=== PATIENT | female | born 1960 | race Caucasian/White ===

== ENCOUNTER 2020-04-19 01:31 | Emergency (ER) | payer OTHER ==
[2020-04-19] MEDS ORDERED: Sodium Chloride 0.9% 10 ML Syringe FLUSH PRN (01:49)
[2020-04-19] MEDS ORDERED: Ondansetron 4 MG/2 ML SDV IVPUSH ONE (01:49)
[2020-04-19] MEDS ORDERED: HYDROmorphone 1 MG/ML Syringe IVPUSH ONE (01:50)
[2020-04-19] MEDS ORDERED: Ketorolac 30 MG/ML SDV IVPUSH ONE (01:50)
--- NOTE | 2020-04-19 01:55 | EDM.PDOC ---
ED HPI GENERAL MEDICAL PROBLEM - General Chief Complaint: Flank Pain Stated Complaint: LEFT SIDE AND BACK PAIN Time Seen by Provider: 04/19/20 01:42 Source of Information: Reports: Patient History Limitations: Reports: No Limitations - History of Present Illness INITIAL COMMENTS - FREE TEXT/NARRATIVE: The patient presents with left flank and left sided abdominal pain This started a few hours ago. She has nausea and vomiting with it. She has a history of kidney stones about 20 years ago. She has no fever but she does have chills. She has no dysuria or hematuria. She has no chest pain, cough, or shortness of breath. Onset: Sudden Duration: Hour(s): Location: Reports: Abdomen, Back Quality: Reports: Sharp Severity: Severe Improves with: Reports: None Worsens with: Reports: None Associated Symptoms: Reports: Fever/Chills, Nausea/Vomiting. 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 Denies: Fever HEENT: Reports: No Symptoms Respiratory: Reports: No Symptoms Cardiovascular: Reports: No Symptoms Endocrine: Reports: No Symptoms GI/Abdominal: Reports: Abdominal Pain, Nausea, Vomiting : Reports: Flank Pain Musculoskeletal: Reports: Back Pain Skin: Reports: No Symptoms ED EXAM, GI/ABD - Physical Exam Exam: See Below Exam Limited By: No Limitations General Appearance: Alert, No Apparent Distress Ears: Normal External Exam Nose: Normal Inspection Head: Atraumatic, Normocephalic Neck: Normal Inspection Respiratory/Chest: No Respiratory Distress, Lungs Clear, Normal Breath Sounds Cardiovascular: Regular Rate, Rhythm, No Edema, No Murmur GI/Abdominal Exam: Soft, No Organomegaly, No Mass, Tender (Mild left lower abdomen) Course - Vital Signs Last Recorded V/S: Last Vital Signs Temp 97.7 F 04/19/20 01:40 Pulse 81 04/19/20 01:40 Resp 16 04/19/20 01:40 BP 183/88 H 04/19/20 01:40 Pulse Ox 98 04/19/20 01:40 - Orders/Labs/Meds Orders: Active Orders 24 hr Category Date Time Status Peripheral IV Care [RC] . DIRECTED Care 04/19/20 01:50 Active Abdomen Pelvis wo Cont [CT] Stat Exams 04/19/20 01:49 Taken Sodium Chloride 0.9% [Normal Saline] 1,000 ml Med 04/19/20 02:00 Active IV ASDIRECTED Sodium Chloride 0.9% [Saline Flush] Med 04/19/20 01:49 Active 10 ml FLUSH ASDIRECTED PRN ED Antiemetic Medication Reflex [OM.PC] Stat Oth 04/19/20 01:49 Ordered Peripheral IV Insertion Adult [OM.PC] Stat Oth 04/19/20 01:49 Ordered Medication Orders Sodium Chloride (Normal Saline) 1,000 mls @ 125 mls/hr IV ASDIRECTED JOSEPHINE Last Admin: 04/19/20 02:01 Dose: 125 mls/hr Documented by: ARY Sodium Chloride (Saline Flush) 10 ml FLUSH ASDIRECTED PRN PRN Reason: Keep Vein Open Last Admin: 04/19/20 02:05 Dose: 10 ml Documented by: ARY Labs: Laboratory Tests 04/19/20 04/19/20 04/19/20 Range/Units 01:56 01:59 01:59 WBC 8.73 (3.98-10.04) K/mm3 RBC 4.81 (3.98-5.22) M/mm3 Hgb 14.4 (11.2-15.7) gm/dl Hct 42.7 (34.1-44.9) % MCV 88.8 (79.4-94.8) fl MCH 29.9 (25.6-32.2) pg MCHC 33.7 (32.2-35.5) g/dl RDW Std Deviation 44.0 (36.4-46.3) fL Plt Count 248 (182-369) K/mm3 MPV 9.0 L (9.4-12.3) fl Neut % (Auto) 64.4 (34.0-71.1) % Lymph % (Auto) 24.3 (19.3-51.7) % [place] % (Auto) 9.2 (4.7-12.5) % Eos % (Auto) 1.7 (0.7-5.8) Baso % (Auto) 0.2 (0.1-1.2) % Neut # (Auto) 5.62 (1.56-6.13) K/mm3 Lymph # (Auto) 2.12 (1.18-3.74) K/mm3 [place] # (Auto) 0.80 H (0.24-0.36) K/mm3 Eos # (Auto) 0.15 (0.04-0.36) K/mm3 Baso # (Auto) 0.02 (0.01-0.08) K/mm3 Sodium 141 (136-145) mEq/L Potassium 3.8 (3.5-5.1) mEq/L Chloride 103 (98-107) mEq/L Carbon Dioxide 24 (21-32) mEq/L Anion Gap 17.8 H (5-15) BUN 26 H (7-18) mg/dL Creatinine 1.3 H (0.55-1.02) mg/dL Est Cr Clr Drug Dosing 45.87 mL/min Estimated GFR (MDRD) 42 (>60) mL/min BUN/Creatinine Ratio 20.0 H (14-18) Glucose 127 H (74-106) mg/dL Calcium 9.4 (8.5-10.1) mg/dL Total Bilirubin 0.3 (0.2-1.0) mg/dL AST 17 (15-37) U/L ALT 24 (14-59) U/L Alkaline Phosphatase 93 (46-116) U/L Total Protein 7.9 (6.4-8.2) g/dl Albumin 3.8 (3.4-5.0) g/dl Globulin 4.1 gm/dL Albumin/Globulin Ratio 0.9 L (1-2) Lipase 118 (73-393) U/L Urine Color Yellow (Yellow) Urine Appearance Clear (Clear) Urine pH 5.5 (5.0-8.0) Ur Specific [place] > or = 1.030 (1.005-1.030) Urine Protein Trace H (Negative) Urine Glucose (UA) Negative (Negative) Urine Ketones Negative (Negative) Urine Occult Blood Trace-intact H (Negative) Urine Nitrite Negative (Negative) Urine Bilirubin Negative (Negative) Urine Urobilinogen 0.2 (0.2-1.0) Ur Leukocyte Esterase Negative (Negative) U Hyaline Cast (Auto) 0-5 (0-5) /lpf Urine RBC 5-10 H (0-5) /hpf Urine WBC 0-5 (0-5) /hpf Ur Squamous Epith Cells 5-10 H (0-5) /hpf Uric Acid Crystals Moderate H (NONE) Urine Bacteria Few (FEW) /hpf Urine Mucus Moderate H (FEW) /hpf Urinalysis Comment Meds: Medications Generic Name Dose Route Start Last Admin Trade Name Freq PRN Reason Stop Dose Admin Sodium Chloride 1,000 mls @ 125 mls/hr 04/19/20 02:00 04/19/20 02:01 Normal Saline IV 125 mls/hr ASDIRECTED JOSEPHINE Administration Sodium Chloride 10 ml 04/19/20 01:49 04/19/20 02:05 Saline Flush FLUSH 10 ml ASDIRECTED PRN Administration Keep Vein Open Discontinued Medications Generic Name Dose Route Start Last Admin Trade Name Freq PRN Reason Stop Dose Admin Hydromorphone HCl 1 mg 04/19/20 01:50 04/19/20 02:03 Dilaudid IVPUSH 04/19/20 01:51 1 mg ONETIME ONE Administration Ketorolac Tromethamine 30 mg 04/19/20 01:50 04/19/20 02:02 Toradol IVPUSH 04/19/20 01:51 30 mg ONETIME ONE Administration Ondansetron HCl 4 mg 04/19/20 01:49 04/19/20 02:01 Zofran IVPUSH 04/19/20 01:50 4 mg ONETIME ONE Administration - Re-Assessments/Exams Free Text/Narrative Re-Assessment/Exam: 04/19/20 01:54 I ordered an IV NS at 125mL/hr, zofran 4mg IV, toradol 30mg IV, dilaudid 1mg IV, UA , labs and a CT of her abdomen and pelvis without contrast to look for a kidney stone. 04/19/20 03:02 Her CBC looks good. Her anion gap is elevated at 17.8. Her creatinine is elevated at 1.3. Her GFR is low at 42. Her glucose is 127. Her lipase is normal. Her UA shows blood but no UTI. Her CT shows left intrarenal calculi, largest 1 within the lower pole measuring to 1.1cm with associated perinephric stranding and minimal hydronephrosis. No evidence of right renal ureteral or bladder calculi. 04/19/20 03:25 I did call [facility] in [place] and talked with Dr Hollis the urologist health administration teacher and he wanted the patient to call his scheduling desk in the morning and he will get her in. I will discharge her home with something for pain. Departure - Departure Time of Disposition: 15:30 Disposition: Home, Self-Care 01 Condition: Good Clinical Impression: Kidney stone on left side, Renal colic on left side - Discharge Information *PRESCRIPTION DRUG MONITORING PROGRAM REVIEWED*: Not Applicable *COPY OF PRESCRIPTION DRUG MONITORING REPORT IN PATIENT KENRICK: Not Applicable Referrals: PCP,None [Primary Care Provider] - Mark Hollis MD [Ordering Only Provider] - 1 Week Forms: ED Department Discharge Additional Instructions: Drink plenty of fluids. Take motrin or tylenol for pain. If that does not help, try the hydrocodone. Take flomax daily. Call Dr Hollis's office in the morning at to make a follow up appointment. Please return if you are worse. Sepsis Event Note (ED) - Evaluation Sepsis Screening Result: No Definite Risk - Focused Exam Vital Signs: Vital Signs Temp Pulse Resp BP Pulse Ox 04/19/20 01:40 97.7 F 81 16 183/88 H 98 - My Orders Last 24 Hours: My Active Orders 04/19/20 01:49 Abdomen Pelvis wo Cont [CT] Stat Sodium Chloride 0.9% [Saline Flush] 10 ml FLUSH ASDIRECTED PRN ED Antiemetic Medication Reflex [OM.PC] Stat Peripheral IV Insertion Adult [OM.PC] Stat 04/19/20 01:50 Peripheral IV Care [RC] . DIRECTED 04/19/20 02:00 Sodium Chloride 0.9% [Normal Saline] 1,000 ml IV ASDIRECTED - Assessment/Plan Last 24 Hours: My Active Orders 04/19/20 01:49 Abdomen Pelvis wo Cont [CT] Stat Sodium Chloride 0.9% [Saline Flush] 10 ml FLUSH ASDIRECTED PRN ED Antiemetic Medication Reflex [OM.PC] Stat Peripheral IV Insertion Adult [OM.PC] Stat 04/19/20 01:50 Peripheral IV Care [RC] . DIRECTED 04/19/20 02:00 Sodium Chloride 0.9% [Normal Saline] 1,000 ml IV ASDIRECTED
[2020-04-19] MEDS ORDERED: Sodium Chloride 0.9% 1,000 ML IV SCH (02:00)
--- NOTE | 2020-04-19 11:02 | CT ---
CT abdomen and the pelvis Technique: Multiple axial sections were obtained from above the lung apices inferiorly through the lung bases. Intravenous contrast was not utilized. Oral contrast was also not given. Reconstructed coronal and sagittal images were obtained. Comparison: No previous abdominal imaging is available. Findings: Visualized lung bases show nothing acute. Noncontrast appearance shows no discrete abnormality. Numerous calcified gallstones are seen within the gallbladder. Spleen appears normal in size. Small low density finding is noted within the upper spleen measuring 1.5 cm which is most likely benign and incidental. Adrenal glands show no nodule. Pancreas shows no discrete abnormality. Aorta shows no aneurysm. No retroperitoneal adenopathy or mesenteric abnormalities are seen. No pelvic mass or adenopathy is appreciated. Appendix is felt to be slightly visualized and appears normal in size. Cyst is noted within the mid left kidney which is both cortical and extends into a parapelvic location. On the coronal images this has maximum measurements of 6.4 cm. Several calcifications are seen within the cyst. 7.6 mm nonobstructing stone is noted within the inferior left kidney. Cyst is noted off the inferior left kidney measuring 2.8 cm. Right kidney shows no abnormal calcifications. Mild haziness is noted around the left kidney. Ureters show no dilatation or obstruction. No free fluid is seen. Bone window settings were reviewed which shows degenerative change with vacuum phenomenon and endplate sclerosis within L3-4 and L4-5. Disc space narrowing with vacuum phenomena is noted within the L5-S1 disc. Impression: 1. 2 left-sided renal cysts. Nonobstructing stone within the lower left kidney. No ureteral dilatation or ureteral stone is seen. 2. Slight inflammatory change around the left kidney. Uncertain if this is due to cyst leakage, old inflammatory process or acute inflammatory process. Please rule out any symptoms of pyelonephritis. 3. Numerous calcified gallstones. Diagnostic code #3 This report was dictated in MDT I agree with preliminary report from [facility], finalized on 04/19/20, 3:41 AM Central Daylight Time
== END 2020-04-19 03:49 | disposition home or self-care (01) ==
LOC: JD.ED 01:31
DX: N13.2 Hydronephrosis with renal and ureteral calculous obstruction (principal); I10 Essential (primary) hypertension
CPT/HCPCS: 36415; 74176; 80053; 81001; 83690; 85025; 96361; 96374; 96375; 99284; J1170; J1885; J2405; J7030; 99283

== ENCOUNTER 2021-06-04 07:58 | Emergency (ER) | payer BC, OTHER ==
[2021-06-04] MEDS ORDERED: Sodium Chloride 0.9% 10 ML Syringe FLUSH PRN (08:42)
[2021-06-04] MEDS ORDERED: Ondansetron 4 MG/2 ML SDV IVPUSH ONE (08:42)
[2021-06-04] MEDS ORDERED: HYDROmorphone 0.5 MG/0.5 ML Syringe IVPUSH ONE (08:43)
[2021-06-04] MEDS ORDERED: Ketorolac 30 MG/ML SDV IVPUSH ONE (08:43)
[2021-06-04] MEDS ORDERED: Sodium Chloride 0.9% 1,000 ML IV SCH (08:45)
--- NOTE | 2021-06-04 09:35 | CT ---
CT abdomen and pelvis Technique: Multiple axial sections were obtained from slightly below the top of the liver inferiorly to the pubic symphysis. Intravenous and oral contrast were not utilized. Study has been performed as a ureteral stone protocol. Comparison: Prior CT of the abdomen and pelvis dated 04/19/20. Findings: Left ureter is prominent which is caused by a distal left ureteral stone located slightly proximal to the UVJ. There is a calculus being seen within the left renal pelvis measuring approximately 8 mm. This is in good location to cause intermittent obstruction. Nonobstructing calculus is noted within the left renal calyx measuring 1.5 cm. Two minimal calcifications are noted within a lower pole calyx measuring in the 2 mm range. Stable cystic change is seen within the left kidney. Largest cyst measures about 5.5 cm. Smaller cyst is noted within the lower pole of the left kidney measuring approximately 3.3 cm. Visualized lung bases show nothing acute. Noncontrast appearance of the liver shows no focal parenchymal abnormality. Numerous calcified gallstones seen within the gallbladder. Spleen size is normal. Adrenal glands show no nodule. Pancreas appears within normal limits. Abdominal aorta shows no aneurysm. No retroperitoneal adenopathy is seen. No mesenteric abnormalities are seen. Appendix is felt to be visualized and normal in size. Diverticuli are seen within the sigmoid colon with no inflammatory change being seen. No pelvic mass or adenopathy is seen. Bone window settings were reviewed which show severe disc space narrowing at L3-4 and L4-5 with endplate sclerosis and vacuum phenomena. Lesser degenerative change is scattered within other portions of the spine. Slight scoliosis is also noted. Small fat-containing umbilical hernia is noted. Impression: 1. 4-5 mm obstructing stone within the distal left ureter slightly proximal to the UVJ. 2. Other nonobstructing calculi within the left kidney as described above. Cysts are seen within the left kidney which are stable from prior exam. 3. Numerous calcified gallstones seen within the gallbladder. These are stable from prior exam. 4. Other findings which are chronic as noted above. Diagnostic code #3
--- NOTE | 2021-06-04 09:48 | EDM.PDOC ---
ED HPI GENERAL MEDICAL PROBLEM - General Chief Complaint: Genitourinary Problem Stated Complaint: KIDNEY STONE Time Seen by Provider: 06/04/21 08:32 Source of Information: Reports: Patient History Limitations: Reports: No Limitations - History of Present Illness INITIAL COMMENTS - FREE TEXT/NARRATIVE: The patient presents with left flank and lower abdominal pain. This started this morning. She has known kidney stone and she was supposed to get lithotripsy months ago but she got COVID and now it is delayed until June. She has more pain today and some lower abdominal pain. She denies dysuria or hematuria. She has no fever, chills, cough, chest pain, or shortness of breath. She feels a little nauseated. She does see Dr Hollis a urologist at [facility] in [place]. She called his nurse and they recommended she come in to be seen. Onset: Gradual Duration: Hour(s): Location: Reports: Abdomen, Back Quality: Reports: Sharp Severity: Moderate Improves with: Reports: None Worsens with: Reports: None Associated Symptoms: Reports: Nausea/Vomiting. 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: Psychiatric History: Reports: Anxiety - Infectious Disease History Infectious Disease History: Reports: Novel Coronavirus - Past Surgical History Female Surgical History: Reports: Hysterectomy Social & Family History - Family History Family Medical History: No Pertinent Family History - Tobacco Use Tobacco Use Status *Q: Never Tobacco User - Caffeine Use Caffeine Use: Reports: Soda - Recreational Drug Use Recreational Drug Use: No ED ROS GENERAL - Review of Systems Review Of Systems: See Below Constitutional: Reports: No Symptoms HEENT: Reports: No Symptoms Respiratory: Reports: No Symptoms Cardiovascular: Reports: No Symptoms Endocrine: Reports: No Symptoms GI/Abdominal: Reports: Abdominal Pain, Nausea. Denies: Diarrhea, Vomiting : Denies: Dysuria Musculoskeletal: Reports: Back Pain ED EXAM, GI/ABD - Physical Exam Exam: See Below Exam Limited By: No Limitations General Appearance: Alert, No Apparent Distress Ears: Normal External Exam Nose: Normal Inspection Head: Atraumatic, Normocephalic Neck: Normal Inspection Respiratory/Chest: No Respiratory Distress, Lungs Clear, Normal Breath Sounds Cardiovascular: Regular Rate, Rhythm, No Edema, No Murmur GI/Abdominal Exam: Soft, No Organomegaly, No Mass, Tender (Mild tenderness to the lower abdomen) Back Exam: CVA Tenderness (L) Course - Vital Signs Last Recorded V/S: Last Vital Signs Temp 97.0 F 06/04/21 08:14 Pulse 105 H 06/04/21 08:14 Resp 16 06/04/21 08:14 BP 138/106 H 06/04/21 08:14 Pulse Ox 97 06/04/21 08:14 - Orders/Labs/Meds Orders: Active Orders 24 hr Category Date Time Status Peripheral IV Care [RC] . DIRECTED Care 06/04/21 08:43 Active Sodium Chloride 0.9% [Normal Saline] 1,000 ml Med 06/04/21 08:45 Active IV ASDIRECTED Sodium Chloride 0.9% [Saline Flush] Med 06/04/21 08:42 Active 10 ml FLUSH ASDIRECTED PRN ED Antiemetic Medication Reflex [OM.PC] Stat Oth 06/04/21 08:42 Ordered Peripheral IV Insertion Adult [OM.PC] Stat Oth 06/04/21 08:42 Ordered Medication Orders Sodium Chloride (Normal Saline) 1,000 mls @ 125 mls/hr IV ASDIRECTED JOSEPHINE Last Admin: 06/04/21 08:52 Dose: 125 mls/hr Documented by: MIQUEL Sodium Chloride (Sodium Chloride 0.9% 10 Ml Syringe) 10 ml FLUSH ASDIRECTED PRN PRN Reason: Keep Vein Open Last Admin: 06/04/21 08:54 Dose: 10 ml Documented by: MIQUEL Labs: Laboratory Tests 06/04/21 06/04/21 06/04/21 Range/Units 08:25 08:50 08:50 WBC 8.81 (3.98-10.04) K/mm3 RBC 4.82 (3.98-5.22) M/mm3 Hgb 14.3 (11.2-15.7) gm/dl Hct 42.2 (34.1-44.9) % MCV 87.6 (79.4-94.8) fl MCH 29.7 (25.6-32.2) pg MCHC 33.9 (32.2-35.5) g/dl RDW Std Deviation 41.9 (36.4-46.3) fL Plt Count 269 (182-369) K/mm3 MPV 9.2 L (9.4-12.3) fl Neut % (Auto) 77.3 H (34.0-71.1) % Lymph % (Auto) 11.8 L (19.3-51.7) % [place] % (Auto) 9.4 (4.7-12.5) % Eos % (Auto) 1.2 (0.7-5.8) Baso % (Auto) 0.1 (0.1-1.2) % Neut # (Auto) 6.80 H (1.56-6.13) K/mm3 Lymph # (Auto) 1.04 L (1.18-3.74) K/mm3 [place] # (Auto) 0.83 H (0.24-0.36) K/mm3 Eos # (Auto) 0.11 (0.04-0.36) K/mm3 Baso # (Auto) 0.01 (0.01-0.08) K/mm3 Sodium 137 (136-145) mEq/L Potassium 3.7 (3.5-5.1) mEq/L Chloride 104 (98-107) mEq/L Carbon Dioxide 24 (21-32) mEq/L Anion Gap 12.7 (5-15) BUN 19 H (7-18) mg/dL Creatinine 1.0 (0.55-1.02) mg/dL Est Cr Clr Drug Dosing 54.92 mL/min Estimated GFR (MDRD) 57 (>60) mL/min BUN/Creatinine Ratio 19.0 H (14-18) Glucose 107 H (70-99) mg/dL Calcium 8.8 (8.5-10.1) mg/dL Total Bilirubin 0.4 (0.2-1.0) mg/dL AST 19 (15-37) U/L ALT 27 (14-59) U/L Alkaline Phosphatase 72 (46-116) U/L Total Protein 7.3 (6.4-8.2) g/dl Albumin 3.4 (3.4-5.0) g/dl Globulin 3.9 gm/dL Albumin/Globulin Ratio 0.9 L (1-2) Lipase 119 (73-393) U/L Urine Color Yellow (Yellow) Urine Appearance Clear (Clear) Urine pH 6.0 (5.0-8.0) Ur Specific [place] > or = 1.030 (1.005-1.030) Urine Protein 1+ H (Negative) Urine Glucose (UA) Negative (Negative) Urine Ketones Negative (Negative) Urine Occult Blood 2+ H (Negative) Urine Nitrite Negative (Negative) Urine Bilirubin Negative (Negative) Urine Urobilinogen 0.2 (0.2-1.0) Ur Leukocyte Esterase Negative (Negative) U Hyaline Cast (Auto) 10-20 H (0-5) /lpf Urine RBC 20-30 H (0-5) /hpf Urine WBC 10-20 H (0-5) /hpf Ur Squamous Epith Cells 10-20 H (0-5) /hpf Amorphous Sediment Few H (NOT SEEN) /hpf Urine Bacteria Many H (FEW) /hpf Urine Mucus Many H (FEW) /hpf Meds: Medications Generic Name Dose Route Start Last Admin Trade Name Sunil PRN Reason Stop Dose Admin Sodium Chloride 1,000 mls @ 125 mls/hr 06/04/21 08:45 06/04/21 08:52 Normal Saline IV 125 mls/hr ASDIRECTED JOSEPHINE Administration Sodium Chloride 10 ml 06/04/21 08:42 06/04/21 08:54 Sodium Chloride 0.9% 10 Ml Syringe FLUSH 10 ml ASDIRECTED PRN Administration Keep Vein Open Discontinued Medications Generic Name Dose Route Start Last Admin Trade Name Freq PRN Reason Stop Dose Admin Hydromorphone HCl 0.5 mg 06/04/21 08:43 06/04/21 08:54 Hydromorphone 0.5 Mg/0.5 Ml Syringe IVPUSH 06/04/21 08:44 0.5 mg ONETIME ONE Administration Ketorolac Tromethamine 30 mg 06/04/21 08:43 06/04/21 08:53 Ketorolac 30 Mg/Ml Sdv IVPUSH 06/04/21 08:44 30 mg ONETIME ONE Administration Ondansetron HCl 4 mg 06/04/21 08:42 06/04/21 08:53 Ondansetron 4 Mg/2 Ml Sdv IVPUSH 06/04/21 08:43 4 mg ONETIME ONE Administration - Re-Assessments/Exams Free Text/Narrative Re-Assessment/Exam: 06/04/21 09:48 I ordered an IV NS at 125mL/hr, zofran 4mg IV, toradol 30mg IV, dilaudid 0.5mg IV, labs, UA and a CT of her abdomen and pelvis without contrast. Her CBC and CMP looks good. Her UA shows no UTI. Her CT shows a 4-5mm obstructing stone within the distal left ureter slightly proximal to the UVJ. Other nonobstructing calculi within the left kidney. Cysts are seen within the left kidney which are stable from prior exam. Numerous calcified gallstones seen within the gallbladder. These are stable from prior exam. Other findings which are chronic. 06/04/21 10:13 I tried to call Dr Hollis to update him and he was in surgery. I let his nurse know what is going on. I will discharge the patient with flomax. Departure - Departure Time of Disposition: 10:15 Disposition: Home, Self-Care 01 Condition: Good Clinical Impression: Kidney stone on left side, Renal colic on left side - Discharge Information *PRESCRIPTION DRUG MONITORING PROGRAM REVIEWED*: Not Applicable *COPY OF PRESCRIPTION DRUG MONITORING REPORT IN PATIENT KENRICK: Not Applicable Prescriptions: Tamsulosin HCl [Flomax] 0.4 mg PO DAILY #7 cap.er.24h Referrals: Kristina Lopez NP [Primary Care Provider] - Mark Hollis MD [Ordering Only Provider] - 1 Week Forms: ED Department Discharge Additional Instructions: Drink plenty of fluids. Take tylenol or motrin as needed for pain. Take flomax daily. Follow up with Dr Hollis within a week. I did send the CT to him to look at. Please return if you are worse. Sepsis Event Note (ED) - Evaluation Sepsis Screening Result: No Definite Risk - Focused Exam Vital Signs: Vital Signs Temp Pulse Resp BP Pulse Ox 06/04/21 08:14 97.0 F 105 H 16 138/106 H 97 - My Orders Last 24 Hours: My Active Orders 06/04/21 08:42 Sodium Chloride 0.9% [Saline Flush] 10 ml FLUSH ASDIRECTED PRN ED Antiemetic Medication Reflex [OM.PC] Stat Peripheral IV Insertion Adult [OM.PC] Stat 06/04/21 08:43 Peripheral IV Care [RC] . DIRECTED 06/04/21 08:45 Sodium Chloride 0.9% [Normal Saline] 1,000 ml IV ASDIRECTED - Assessment/Plan Last 24 Hours: My Active Orders 06/04/21 08:42 Sodium Chloride 0.9% [Saline Flush] 10 ml FLUSH ASDIRECTED PRN ED Antiemetic Medication Reflex [OM.PC] Stat Peripheral IV Insertion Adult [OM.PC] Stat 06/04/21 08:43 Peripheral IV Care [RC] . DIRECTED 06/04/21 08:45 Sodium Chloride 0.9% [Normal Saline] 1,000 ml IV ASDIRECTED
== END 2021-06-04 10:30 | disposition home or self-care (01) ==
LOC: JD.ED 07:58
DX: N20.2 Calculus of kidney with calculus of ureter (principal); I10 Essential (primary) hypertension; Z86.16 Personal history of COVID-19; Z79.899 Other long term (current) drug therapy
CPT/HCPCS: 36415; 74176; 74176-26; 80053; 81001; 83690; 85025; 96374; 96375; 99284-25; J1170; J1885; J2405; J7030

== ENCOUNTER 2021-09-19 22:12 | Emergency (ER) | payer BC, OTHER ==
[2021-09-19] MEDS ORDERED: Adenosine 12 MG/4 ML SDV ONE (22:32)
[2021-09-19] MEDS ORDERED: Adenosine 6 MG/2 ML SDV ONE (22:32)
[2021-09-19] MEDS ORDERED: Adenosine 6 MG/2 ML SDV IVPUSH ONE (22:35)
== END 2021-09-20 00:11 | disposition home or self-care (01) ==
LOC: JD.ED 22:12
DX: R00.0 Tachycardia, unspecified (principal); I10 Essential (primary) hypertension; E66.9 Obesity, unspecified; Z68.41 Body mass index [BMI] 40.0-44.9, adult; Z86.16 Personal history of COVID-19
CPT/HCPCS: 36415; 71046; 80048; 83735; 84443; 84484; 85025; 85379; 93005; 96374; 99285; J0153

== ENCOUNTER 2023-10-02 08:03 | Emergency (ER) | payer BC, OTHER ==
[2023-10-02 08:57] LABS: BASOPHILS PERCENT AUTO 0.5 % (0.0-1.0); EOSINOPHILS ABSOLUTE AUTO 0.1 K/mm3 (0.0-0.4); EOSINOPHILS PERCENT AUTO 1.2 % (0.0-6.0); HEMATOCRIT 46.7 % (37.0-47.0); HEMOGLOBIN 15.6 gm/dl (12.0-16.0); IMMATURE GRAN ABSOLUTE AUTO 0.03 K/mm3 (0.00-0.05); IMMATURE GRAN PERCENT AUTO 0.4 % (0.0-0.4); LYMPHOCYTES ABSOLUTE AUTO 1.1 K/mm3 (1.0-4.8); MEAN CORPUSCULAR HEMOGLOBIN 29.4 pg (28.0-32.0); MEAN CORPUSCULAR HGB CONC 33.4 g/dl (32.0-36.0); MEAN CORPUSCULAR VOLUME 88.1 fl (83.0-99.0); MEAN PLATELET VOLUME 9.2 fl (9.4-12.3); MONOCYTES ABSOLUTE AUTO 0.4 K/mm3 (0.0-0.8); MONOCYTES PERCENT AUTO 4.7 % (0.0-8.0); NEUTROPHILS ABSOLUTE AUTO 6.9 K/mm3 (1.8-7.7); NEUTROPHILS PERCENT AUTO 80.2 % (41.0-71.0); PLATELET COUNT,PLT 243 K/mm3 (150-400); WHITE BLOOD CELL COUNT,WBC 8.54 K/mm3 (3.9-11.3)
[2023-10-02 09:26] LABS: A/G RATIO 0.8 (1-2); ALBUMIN 3.5 g/dl (3.4-5.0); ANION GAP 16.8 (5-15); BILIRUBIN TOTAL 0.4 mg/dL (0.2-1.0); BUN/CREATININE RATIO 21.4 (14-18); CREATININE 0.7 mg/dL (0.55-1.02); EST CRCL DRUG DOSING (CG) 74.98 mL/min; POTASSIUM,K 3.8 mEq/L (3.5-5.1); PROTEIN TOTAL,TP 7.7 g/dl (6.4-8.2)
[2023-10-02 09:34] LABS: INFLUENZA A NAA NEGATIVE (NEGATIVE)
[2023-10-02] MEDS: Ondansetron 4 MG Tab.DIS PO ONE (12:10)
[2023-10-02] MEDS: Aspirin 325 MG Tab.EC PO ONE (12:10)
[2023-10-02] MEDS: Meclizine 25 MG Tab PO ONE (12:10)
[2023-10-02] MEDS: Sodium Chloride 0.9% 10 ML Syringe FLUSH PRN (12:53)
[2023-10-03] MEDS ORDERED: Pantoprazole 40 MG Tab.CR PO ONE (12:00)
== END 2023-10-02 12:13 | disposition home or self-care (01) ==
LOC: JD.ED 08:03
DX: R07.89 Other chest pain (principal); R42 Dizziness and giddiness; I10 Essential (primary) hypertension; Z86.16 Personal history of COVID-19; Z90.710 Acquired absence of both cervix and uterus
CPT/HCPCS: 36415; 71045; 80053; 83880; 84484; 85025; 87502; 93005; 99285; A9270; J3490

== ENCOUNTER 2023-11-02 07:32 | Emergency (ER) | payer BC, OTHER ==
[2023-11-02 08:24] LABS: BASOPHILS ABSOLUTE AUTO 0.1 K/mm3 (0.0-0.2); BASOPHILS PERCENT AUTO 0.7 % (0.0-1.0); EOSINOPHILS ABSOLUTE AUTO 0.1 K/mm3 (0.0-0.4); EOSINOPHILS PERCENT AUTO 1.9 % (0.0-6.0); HEMATOCRIT 43.9 % (37.0-47.0); IMMATURE GRAN ABSOLUTE AUTO 0.02 K/mm3 (0.00-0.05); IMMATURE GRAN PERCENT AUTO 0.3 % (0.0-0.4); LYMPHOCYTES ABSOLUTE AUTO 1.5 K/mm3 (1.0-4.8); LYMPHOCYTES PERCENT AUTO 20.3 % (24.0-44.0); MEAN CORPUSCULAR HEMOGLOBIN 29.3 pg (28.0-32.0); MEAN CORPUSCULAR HGB CONC 34.2 g/dl (32.0-36.0); MEAN CORPUSCULAR VOLUME 85.7 fl (83.0-99.0); MEAN PLATELET VOLUME 9.4 fl (9.4-12.3); MONOCYTES ABSOLUTE AUTO 0.5 K/mm3 (0.0-0.8); MONOCYTES PERCENT AUTO 6.9 % (0.0-8.0); NEUTROPHILS ABSOLUTE AUTO 5.1 K/mm3 (1.8-7.7); NEUTROPHILS PERCENT AUTO 69.9 % (41.0-71.0); PLATELET COUNT,PLT 251 K/mm3 (150-400); RED BLOOD CELL COUNT 5.12 M/mm3 (4.10-5.30); WHITE BLOOD CELL COUNT,WBC 7.24 K/mm3 (3.9-11.3)
[2023-11-02] MEDS: Metoclopramide 10 MG/2 ML SDV IVPUSH ONE (08:29)
[2023-11-02] MEDS: diphenhydrAMINE 50 MG/ML SDV IVPUSH ONE (08:32)
[2023-11-02] MEDS: Sodium Chloride 0.9% 1,000 ML IV SCH (08:34)
[2023-11-02 08:45] LABS: A/G RATIO 0.8 (1-2); ALBUMIN 3.7 g/dl (3.4-5.0); ANION GAP 15.7 (5-15); BILIRUBIN TOTAL 0.6 mg/dL (0.2-1.0); BUN/CREATININE RATIO 21.3 (14-18); C-REACTIVE PROTEIN 1.74 mg/dL (<0.30); CALCIUM 9.3 mg/dL (8.5-10.1); CREATININE 0.8 mg/dL (0.55-1.02); EST CRCL DRUG DOSING (CG) 65.61 mL/min; MAGNESIUM 1.7 mg/dL (1.8-2.4); POTASSIUM,K 3.7 mEq/L (3.5-5.1); PROTEIN TOTAL,TP 8.5 g/dl (6.4-8.2)
[2023-11-02 11:47] LABS: APPEARANCE,URINE CLEAR (Clear); BILIRUBIN,URINE NEGATIVE (Negative); COLOR,URINE YELLOW (Yellow); GLUCOSE,URINE NEGATIVE (Negative); KETONES,URINE NEGATIVE (Negative); LEUKOCYTE ESTERASE,URINE NEGATIVE (Negative); NITRITE,URINE NEGATIVE (Negative); OCCULT BLOOD,URINE NEGATIVE (Negative); PROTEIN,URINE NEGATIVE (Negative); UROBILINOGEN,URINE 0.2 (0.2-1.0)
[2023-11-02 12:04] LABS: BACTERIA,URINE RARE /hpf (FEW); EPITHELIAL CELLS,URINE 0-5 /hpf (0-5); MUCUS,URINE RARE /hpf (FEW); RBC,URINE 0-5 /hpf (0-5); WBC,URINE 0-5 /hpf (0-5)
== END 2023-11-02 12:40 | disposition home or self-care (01) ==
LOC: JD.ED 07:32
DX: R55 Syncope and collapse (principal); I10 Essential (primary) hypertension; E66.9 Obesity, unspecified; Z86.16 Personal history of COVID-19; Z90.710 Acquired absence of both cervix and uterus; Z79.899 Other long term (current) drug therapy; Z79.82 Long term (current) use of aspirin; Z68.42 Body mass index [BMI] 45.0-49.9, adult
CPT/HCPCS: 36415; 71045; 80053; 81001; 83735; 83880; 84484; 85025; 85379; 86140; 93005; 96361; 96374; 96375; 99284; J1200; J2765; J7030; 93010

== ENCOUNTER 2024-09-07 16:18 | Emergency (ER) | payer BC, OTHER ==
[2024-09-07 17:48] LABS: BASOPHILS PERCENT AUTO 0.3 % (0.0-1.0); EOSINOPHILS ABSOLUTE AUTO 0.2 K/mm3 (0.0-0.4); HEMATOCRIT 41.7 % (37.0-47.0); HEMOGLOBIN 14.2 gm/dl (12.0-16.0); IMMATURE GRAN ABSOLUTE AUTO 0.04 K/mm3 (0.00-0.05); IMMATURE GRAN PERCENT AUTO 0.5 % (0.0-0.4); LYMPHOCYTES PERCENT AUTO 26.3 % (24.0-44.0); MEAN CORPUSCULAR HEMOGLOBIN 29.3 pg (28.0-32.0); MEAN CORPUSCULAR HGB CONC 34.1 g/dl (32.0-36.0); MEAN CORPUSCULAR VOLUME 86.2 fl (83.0-99.0); MEAN PLATELET VOLUME 9.1 fl (9.4-12.3); MONOCYTES ABSOLUTE AUTO 0.6 K/mm3 (0.0-0.8); MONOCYTES PERCENT AUTO 8.4 % (0.0-8.0); NEUTROPHILS ABSOLUTE AUTO 4.8 K/mm3 (1.8-7.7); NEUTROPHILS PERCENT AUTO 62.5 % (41.0-71.0); PLATELET COUNT,PLT 229 K/mm3 (150-400); RED BLOOD CELL COUNT 4.84 M/mm3 (4.10-5.30); WHITE BLOOD CELL COUNT,WBC 7.63 K/mm3 (3.9-11.3)
[2024-09-07] MEDS: Prochlorperazine 10 MG/2 ML SDV IVPUSH ONE (18:08)
[2024-09-07] MEDS: Sodium Chloride 0.9% 1,000 ML IV ONE (18:09)
[2024-09-07 18:36] LABS: A/G RATIO 0.9 (1-2); ALBUMIN 3.3 g/dl (3.4-5.0); ANION GAP 13.2 (5-15); BILIRUBIN TOTAL 0.6 mg/dL (0.2-1.0); BUN/CREATININE RATIO 14.4 (14-18); C-REACTIVE PROTEIN 0.47 mg/dL (<0.30); CALCIUM 8.8 mg/dL (8.5-10.1); CREATININE 0.9 mg/dL (0.55-1.02); EST CRCL DRUG DOSING (CG) 57.57 mL/min; MAGNESIUM 1.7 mg/dL (1.8-2.4); POTASSIUM,K 3.2 mEq/L (3.5-5.1); PROTEIN TOTAL,TP 6.9 g/dl (6.4-8.2)
[2024-09-07] MEDS: Meclizine 25 MG Tab PO ONE (19:26)
[2024-09-07] MEDS: Magnesium Oxide 400 MG Tab PO ONE (19:26)
== END 2024-09-07 19:27 | disposition home or self-care (01) ==
LOC: JD.ED 16:18
DX: R11.2 Nausea with vomiting, unspecified (principal); R53.83 Other fatigue; R51.9 Headache, unspecified; I10 Essential (primary) hypertension; E66.9 Obesity, unspecified; Z68.41 Body mass index [BMI] 40.0-44.9, adult; Z86.16 Personal history of COVID-19; Z90.710 Acquired absence of both cervix and uterus; Z79.82 Long term (current) use of aspirin; Z79.899 Other long term (current) drug therapy
CPT/HCPCS: 36415; 80053; 83690; 83735; 84484; 85025; 86140; 93005; 96361; 96374; 99285; A9270; J0780; J7030